=== PATIENT | male | born 1960 | race Two or more races ===

== ENCOUNTER 2020-07-01 15:56 | Emergency (ER) | payer MEDICAID, OTHER ==
[~2020-07-01] VITALS: Ht 162.6 cm; Wt 80.7 kg
[2020-07-01 16:09] VITALS: BP 140/60
[2020-07-01] MEDS ORDERED: TETANUS-DIPTH-ACEL PERTUSSIS 0.5ML SYR Tdap IM ONE (17:00)
== END 2020-07-01 16:57 | disposition home or self-care (01) ==
LOC: ER 15:56
DX: S91.331A Puncture wound without foreign body, right foot, initial encounter (principal); E78.5 Hyperlipidemia, unspecified; I10 Essential (primary) hypertension; W22.8XXA Striking against or struck by other objects, initial encounter; Y93.89 Activity, other specified; Y92.89 Other specified places as the place of occurrence of the external cause; Y99.8 Other external cause status
CPT/HCPCS: 90471; 90715